=== PATIENT | male | born 1980 | race American Indian/Alaskan Native ===

== ENCOUNTER 2017-08-30 15:44 | Emergency (ER) | payer SELFPAY ==
[2017-08-30 17:56] VITALS: BP 147/85
--- NOTE | 2017-08-30 18:17 | XRay Report ---
FINAL REPORT EXAM: XR FINGER(S) 2+V LT HISTORY: r/o fracture first finger TECHNIQUE: Left hand three views PRIORS: None. FINDINGS: There is acute traumatic fracture distal 2nd metacarpal. The articular surface appears intact. There is apex volar angulation and some comminution present. Noted is corticated deformity the left 5th metacarpal most consistent with remote healed fracture. No radiopaque foreign bodies are observed. No additional acute bony findings. IMPRESSION: Acute fracture of the second metacarpal Remote healed 5th metacarpal fracture
[2017-08-30] MEDS ORDERED: NORCO 5/325 PO ONE (18:20)
--- NOTE | 2017-08-30 18:44 | Emergency Department Report ---
Upper Extremity - HPI Chief Complaint: Laceration/Recheck/Suture Stated Complaint: BROKEN FINGER Time Seen by Provider: 08/30/17 18:07 Occurred When: 3 Days Mechanism: Hit with Object (hit with door) Symptoms: Yes Pain with Movement, Yes Deformity, Yes Limited Range of Movement, Yes Swelling, No Numbness, No Weakness, No Bruising/Ecchymosis, No Laceration or Abrasion Other History: 37-year-old male past medical history left hand boxer's fracture resents with complaint of 3 days of pain at base of left index finger. Patient states that he works with [employer] and approximately 3 days ago a door slammed on his hand accidentally while at work. Patient states he has had pain and swelling this area since. Denies any breaks in skin. Patient states he went to [facility] initially ED Review of Systems ROS: Stated complaint: BROKEN FINGER Other details as noted in HPI Constitutional: denies: chills, fever Eyes: denies: eye pain, eye discharge, vision change ENT: denies: ear pain, throat pain Respiratory: denies: cough, shortness of breath, wheezing Cardiovascular: denies: chest pain, palpitations Endocrine: no symptoms reported Gastrointestinal: denies: abdominal pain, nausea, diarrhea Genitourinary: denies: urgency, dysuria Musculoskeletal: denies: back pain, joint swelling, arthralgia Skin: denies: rash, lesions Neurological: denies: headache, weakness, paresthesias Psychiatric: denies: anxiety, depression Hematological/Lymphatic: denies: easy bleeding, easy bruising ED Past Medical Hx - Past Medical History Hx Hypertension: Yes - Social History Smoking Status: Never Smoker Substance Use Type: None - Medications Home Medications: Home Medications Medication Instructions Recorded Confirmed Last Taken Type Hyoscyamine Subl [Levsin Sl] 0.125 mg SL Q4HR PRN #10 tablet 01/16/14 Unknown Rx Promethazine [Phenergan] 25 mg PO Q6H PRN #10 tablet 01/16/14 Unknown Rx Ibuprofen [Motrin] 800 mg PO Q8HR PRN #20 tablet 08/30/17 Unknown Rx Upper Extremity Exam - Exam General: Vital signs noted. No distress. Alert and acting appropriately. Head and Torso: No HEENT Abnormality, No Neck Tenderness, No Chest/Lungs Abnormality, No Abdominal Tenderness, No Back Tenderness Shoulder Exam: Yes Normal Range of Motion in Shoulder, No Shoulder Tenderness, No Clavicle Tenderness, No Shoulder Deformity, No AC Joint Tenderness Arm Exam: No Arm/Humerus Tenderness, No Arm Deformity Elbow: No Elbow Tenderness, No Normal Range of Motion in Elbow, No Elbow Deformity Forearm: No Forearm Tenderness, No Forearm Deformity, No Pain with Pronation, No Pain with Supination Wrist: Yes Normal ROM in Wrist (wrist range of motion clinically intact), No Wrist Tenderness, No Wrist Deformity, No Snuffbox Tenderness, No Pain with Axial Thumb Compression Hand: Yes Hand Tenderness (pain at second metacarpal joints distally left hand) , Yes Digit Tenderness (pain at base of index finger left), Yes Normal ROM in Digit(s), No Hand Deformity, No Digit(s) Deformity, No Tendon Dysfunction CMS Exam: Yes Normal Distal Pulses (distal capillary refill less than 1 second, distal pulses are clinically intact on exam area and there is no broken skin), Yes Normal Capillary Refill, Yes Normal Distal Sensation, No Broken Skin Hand L/R Back: 1 - Pain and swelling here ED Course Vital Signs 08/30/17 16:14 Temperature 98.2 F Pulse Rate 49 L Respiratory 18 Rate Blood Pressure 147/85 O2 Sat by Pulse 100 Oximetry ED Medical Decision Making - Medical Decision Making A/P: Distal fracture at second metacarpal left hand 1-Motrin and [place] short course when necessary 2-left hand/wrist placed in extended splint to encompass fingers 3-is discussed with on-call orthopedic surgeon . Discussed morphology of fracture with orthopedic attending. Patient to follow-up in office tomorrow with Dr. Kohli 4-neurovascular exam left upper extremity clinically intact Critical care attestation.: If time is entered above; I have spent that time in minutes in the direct care of this critically ill patient, excluding procedure time. ED Disposition Clinical Impression: Left hand fracture Qualifiers: Encounter type: initial encounter Fracture type: closed Qualified Code(s): S62.92XA - Unspecified fracture of left wrist and hand, initial encounter for closed fracture Fracture of second metacarpal bone of left hand Qualifiers: Encounter type: initial encounter Fracture type: closed Metacarpal location: unspecified portion of metacarpal Fracture alignment: displaced Qualified Code(s ): S62.301A - Unspecified fracture of second metacarpal bone, left hand, initial encounter for closed fracture Disposition: TO HOME OR SELFCARE Is pt being admited?: No Does the pt Need Aspirin: No Condition: Stable Instructions: Hand Fracture (ED) Prescriptions: Ibuprofen [Motrin] 800 mg PO Q8HR PRN #20 tablet PRN Reason: Pain , Severe (7-10) Referrals: PRIMARY CARE, [Primary Care Provider] - 3-5 Days KENA KOHLI MD [Staff Physician] - 3-5 Days Forms: Work/School Release Form(ED) Time of Disposition: 18:49
== END 2017-08-30 19:16 | disposition home or self-care (01) ==
LOC: ED 15:44
DX: S62.301A Unspecified fracture of second metacarpal bone, left hand, initial encounter for closed fracture (principal); S62.92XA Unspecified fracture of left hand, initial encounter for closed fracture; I10 Essential (primary) hypertension; Z91.018 Allergy to other foods; W23.1XXA Caught, crushed, jammed, or pinched between stationary objects, initial encounter; Y93.89 Activity, other specified; Y99.0 Civilian activity done for income or pay; Y92.69 Other specified industrial and construction area as the place of occurrence of the external cause